=== PATIENT | female | born 1985 | race Two or more races ===

== ENCOUNTER 2016-07-28 17:13 | Emergency (ER) | payer SELFPAY ==
[2016-07-28 17:16] VITALS: BP 102/61
--- NOTE | 2016-07-28 17:43 | PHYS DOC ---
Past Medical History Past Medical History: No Pertinent History Past Surgical History: No Surgical History Alcohol Use: None Drug Use: None Adult General Chief Complaint Chief Complaint: BREAST PROBLEM HPI HPI Patient is a 30 year old female who presents with complaint of abscess to the left nipple. Patient states that she noticed it first 8 days ago. Patient states that since that time she is followed at [facility] and had been receiving treatment with Keflex and Rocephin. Despite treatment, the patient has had worsening infection to the left nipple. Patient was referred to the emergency department for evaluation and possible surgical consultation for I&D. Patient has not had any fevers. Patient states that the lesion is extremely painful to touch and rates the pain as 10 out of 10 when touched. Patient is currently 26 weeks . Patient has had no significant complications with her and states that she is not having any vaginal bleeding or abdominal pain currently. Review of Systems Review of Systems Constitutional: Denies fever or chills [] Eyes: Denies change in visual acuity, redness, or eye pain [] HENT: Denies nasal congestion or sore throat [] Respiratory: Denies cough or shortness of breath [] Cardiovascular: Denies chest pain or edema [] GI: Denies abdominal pain, nausea, vomiting, bloody stools or diarrhea [] : Left nipple abscess [] Musculoskeletal: Denies back pain or joint pain [] Integument: Denies rash or skin lesions [] Neurologic: Denies headache, focal weakness or sensory changes [] Allergies Allergies Allergies Coded Allergies Type Severity Reaction Last Updated Verified No Known Drug Allergies 07/28/16 No Physical Exam Physical Exam Constitutional: Well developed, well nourished, no acute distress, non-toxic appearance. [] HENT: Normocephalic, atraumatic, bilateral external ears normal, oropharynx moist, no oral exudates, nose normal. [] Eyes: PERRLA, EOMI, conjunctiva normal, no discharge. [] Neck: Normal range of motion, no tenderness, supple, no stridor. [] Cardiovascular:Heart rate regular rhythm, no murmur [] Lungs & Thorax: Bilateral breath sounds clear to auscultation Breast: 2.5 x 2 cm fluctuant lesion on superior portion of left nipple, no obvious areolar involvement involvement. The lesion is tender to palpation and is warm to touch, no palpable induration present and left breast. Abdomen: Bowel sounds normal, soft, no tenderness, no masses, no pulsatile masses. [] Skin: Warm, dry, no erythema, no rash. [] Back: No tenderness, no CVA tenderness. [] Extremities: No tenderness, no cyanosis, no clubbing, ROM intact, no edema. [] Neurologic: Alert and oriented X 3, normal motor function, normal sensory function, no focal deficits noted. [] Current Patient Data Vital Signs Vital Signs Date Time Temp Pulse Resp B/P Pulse Ox O2 Delivery O2 Flow Rate FiO2 07/28/16 17:16 97.9 86 20 98 Room Air 97.9 EKG EKG Not performed [] Radiology/Procedures Radiology/Procedures Indication: Left nipple abscess Procedure: The patient was positioned appropriately. Local anesthesia was withheld. An incision was then made over the apex of the lesion and 4 mL of purulent material was expressed out of the incision. Clean gauze was placed over the wound site. The patients tetanus status updated as needed. The patient tolerated the procedure well. Complications: none.[] Course & Med Decision Making Course & Med Decision Making Pertinent Labs and Imaging studies reviewed. (See chart for details) I consult to Dr. Shine of general surgery. He stated that based off of the description it would be appropriate for incision and drainage in the emergency department and recommended not to place any packing but stated that it would be appropriate to change the patient's antibiotic to clindamycin. He agreed to follow-up with the patient in clinic for reevaluation. Patient received incision and drainage as outlined in the procedure note with expression of approximately 4 mL of purulent material. Patient also received tetanus booster as she did not remember when she last received tetanus booster. Advise follow- up in 3-[address] Shine's office and return to emergency department for any worsening symptoms. Patient voiced understanding and in agreement with treatment plan. Dragon Disclaimer Dragon Disclaimer This electronic medical record was generated, in whole or in part, using a voice recognition dictation system. Departure Departure Impression: Primary Impression: Abscess of left nipple Additional Impression: Second trimester Disposition: HOME, SELF-CARE Condition: IMPROVED Referrals: BLANCA SHINE MD Patient Instructions: Abscess, Care After, Incision and Drainage, Care After Additional Instructions: Follow-up with Dr. Dover in 3-5 days. Discontinue your Keflex prescription and begin taking clindamycin as prescribed from the emergency department today. Return to the emergency department for any worsening symptoms. Scripts Clindamycin Hcl 300 Mg Capsule1 Cap PO TID #21 CAP Prov:LANA KHAN MD 07/28/16 Problem Qualifiers LANA KHAN MD Jul 28, 2016 17:43
[2016-07-28] MEDS ORDERED: DIPHTH,PERTUSS(ACELL),TET TOX 0.5 ML DISP.SYRIN. VAX IM ONE (18:15)
[2016-07-28] MEDS ORDERED: CLIN300C86 PO (18:18)
== END 2016-07-28 18:35 | disposition home or self-care (01) ==
LOC: ER 17:13
DX: O00-O9A Pregnancy, childbirth and the puerperium (principal); Z3A.26 26 weeks gestation of pregnancy
CPT/HCPCS: 10060; 90471; 90715; 99283-25

== ENCOUNTER → 2017-04-10 | Outpatient (CLI) | payer OTHER ==
[~2017-04-10] MED LIST: CLIN300C8 PO
--- NOTE | 2017-04-10 14:57 | KCIC ---
Single view chest 04/10/2017 CLINICAL INDICATION: Positive TB test. COMPARISON: None. FINDINGS: There is a poor depth of inspiration. Cardiac and mediastinal silhouettes are unremarkable. No pleural effusion, pneumothorax or focal consolidation. IMPRESSION: Somewhat limited exam due to poor depth of inspiration with no acute cardiopulmonary abnormality. Electronically signed by: Chavo Pickard MD (04/10/2017 2:54 PM) [id number]
== END | disposition home or self-care (01) ==
LOC: KCIC 14:08
PROVIDERS: ATTEND Family Medicine
DX: R76.11 Nonspecific reaction to tuberculin skin test without active tuberculosis (principal)
CPT/HCPCS: 71010

== ENCOUNTER 2021-07-27 09:39 | Inpatient (IN) | payer SELFPAY ==
[~2021-07-27] VITALS: Ht 152.4 cm; Wt 81.0 kg
[~2021-07-27 09:39] MED LIST changes: +CLIN-94 PO; -CLIN300C8 PO
[2021-07-27] MEDS ORDERED: IV RINGERS,LACTATED 1000ML 1,000 ML IV PRN (10:15)
[2021-07-27] MEDS ORDERED: 0.9 % SODIUM CHLORIDE 10 ML DISP.SYRIN. IV PRN ×2 (13:30→16:30)
[2021-07-27] MEDS ORDERED: IV RINGERS,LACTATED 1000ML 1,000 ML IV SCH (13:30)
[2021-07-27] MEDS ORDERED: TERBUTALINE 1 MG/ML VIAL. SQ PRN (13:30)
[2021-07-27] MEDS ORDERED: BUTORPHANOL 2 MG/ML VIAL. IVP PRN ×2 (13:30)
[2021-07-27] MEDS ORDERED: ACETAMINOPHEN 325 MG TABLET. PO PRN ×2 (13:30→16:30)
[2021-07-27] MEDS ORDERED: OXYTOCIN 30 UNIT/500 ML PREMIX 500 ML IV PRN ×3 (13:30→16:30)
[2021-07-27] MEDS ORDERED: LIDOCAINE 1% PF 30 ML VIAL. INJ PRN (13:30)
[2021-07-27 13:45] VITALS: BP 142/73
[2021-07-27 13:49] LABS: BASO % 1 % (0-3); EOS # 0.1 x10^3/uL (0.0-0.7); EOS % 1 % (0-3); HEMOGLOBIN 13.4 g/dL (12.0-15.5); LYMPH # 2.6 x10^3/uL (1.0-4.8); LYMPH % 29 % (24-48); MEAN CORPUSCULAR HEMOGLOBIN 31 pg (25-35); MEAN CORPUSCULAR HGB CONC 35 g/dL (31-37); MEAN CORPUSCULAR VOLUME 87 fL (79-100); MONO # 0.6 x10^3/uL (0.0-1.1); MONO % 7 % (0-9); NEUT # 5.6 x10^3/uL (1.8-7.7); NEUT % 63 % (31-73); PLATELET COUNT 267 x10^3/uL (140-400); RED BLOOD COUNT 4.35 x10^6/uL (3.50-5.40); WHITE BLOOD COUNT 8.9 x10^3/uL (4.0-11.0)
--- NOTE | 2021-07-27 14:27 | PDOC1 ---
DEMURRAGE CLERK H&P Date of Admission: Date of Admission: Jul 27, 2021 at 09:39 History of Present Illness: EDC: 07/31/21 LMP: 11/02/20 35y @ 39.3 by 2nd trimester u/s per pt presents with ctxs. The tp was found to be 3 cm on presentation. After an hours time she had progressed to 3-4 cm dilated. She was given an additional hour to see if she was in active labor. During that time the experienced SROM. The pt reports that she was dxed with GDM during the . PMH: Denies PSH: Denies Meds: PNV All: NKDA OBHx: 4 x TSVD SH: no tob, no EtOH FH: DM Allergies: Coded Allergies: No Known Drug Allergies (Unverified , 07/28/16) Physical Exam: PE: GENERAL: No apparent distress. Alert and oriented. HEENT: Head normocephalic, atraumatic. NECK: Supple LUNGS: Clear to auscultation. HEART: RRR, S1, S2 present, pulses intact ABDOMEN: Soft, positive bowel sounds. EXTREMITIES: No cyanosis or edema. NEUROLOGIC: Normal speech, normal tone PSYCHIATRIC: Normal affect, normal mood. SKIN: No ulceration. FHT: 120s +acels/no decels/mLTV [place]: 3 min SVE: 6/C/-1 Labs: Laboratory Tests Test 07/27/21 10:05 07/27/21 13:30 07/27/21 13:36 Urine Collection Type Unknown Urine Color (Auto) Yellow Urine Turbidity Clear Urine pH (Auto) 6.5 (<5.0-8.0) Urine Specific [place] 1.025 (1.000-1.030) Urine Protein (Auto) 30 mg/dL (Negative) Urine Glucose (Auto)(UA) 500 mg/dL (Negative) Urine Ketones (Auto) Trace mg/dL (Negative) Urine Blood (Auto) Negative (Negative) Urine Nitrite (Auto) Positive (Negative) Urine Bilirubin (Auto) Negative (Negative) Urine Urobilinogen (Auto) Normal mg/dL (Normal) Urine Leukocyte Esterase (Auto) Negative (Negative) White Blood Count 8.9 x10^3/uL (4.0-11.0) Red Blood Count 4.35 x10^6/uL (3.50-5.40) Hemoglobin 13.4 g/dL (12.0-15.5) Hematocrit 38.0 % (36.0-47.0) Mean Corpuscular Volume 87 fL (79-100) Mean Corpuscular Hemoglobin 31 pg (25-35) Mean Corpuscular Hemoglobin Concent 35 g/dL (31-37) Red Cell Distribution Width 14.0 % (11.5-14.5) Platelet Count 267 x10^3/uL (140-400) Neutrophils (%) (Auto) 63 % (31-73) Lymphocytes (%) (Auto) 29 % (24-48) Monocytes (%) (Auto) 7 % (0-9) Eosinophils (%) (Auto) 1 % (0-3) Basophils (%) (Auto) 1 % (0-3) Neutrophils # (Auto) 5.6 x10^3/uL (1.8-7.7) Lymphocytes # (Auto) 2.6 x10^3/uL (1.0-4.8) Monocytes # (Auto) 0.6 x10^3/uL (0.0-1.1) Eosinophils # (Auto) 0.1 x10^3/uL (0.0-0.7) Basophils # (Auto) 0.0 x10^3/uL (0.0-0.2) Glucose (Fingerstick) 83 mg/dL (70-99) Laboratory Tests 07/27/21 13:30 Laboratory Tests 07/27/21 13:30 Assessment & Plan: A/P 35y @ 39.3 by 2nd trimester u/s 1.) [facility] records requested 2.) SROM will augment 3.) AMA 4.) GDM unknown control, likely A1 5.) Fetus cat I FHT 6.) GBS unk records requested INDU FINNEGAN MD Jul 27, 2021 14:27
[2021-07-27] MEDS ORDERED: OXYTOCIN PREMIX 30 UNIT/500 ML NS BAG. IV ONE (14:30)
[2021-07-27] MEDS ORDERED: LIDOCAINE 2% PF 5 ML VIAL. ONE (14:38)
[2021-07-27] MEDS ORDERED: oxyCODONE/APAP 5/325 1 TAB TABLET PO PRN (16:30)
[2021-07-27] MEDS ORDERED: BENZOCAINE 20% TOPICAL AEROSOL SPRAY 57GM CAN. TP PRN (16:30)
[2021-07-27] MEDS ORDERED: MAG HYDROX/ALUMINUM HYD/SIMETH 30 ML ORAL.SUSP PO PRN (16:30)
[2021-07-27] MEDS ORDERED: SIMETHICONE 80 MG TAB.CHEW PO PRN (16:30)
[2021-07-27] MEDS ORDERED: HYDROCORTISONE 1% TOPICAL OINTMENT 30GM TUBE. TP PRN (16:30)
[2021-07-27] MEDS ORDERED: TDaP (BOOSTRIX) per PROTOCOL. MC PRN (16:30)
[2021-07-27] MEDS ORDERED: PHENYLEPH/MINERAL OIL/PETROLAT RECTAL OINTMENT TUBE. RC PRN (16:30)
[2021-07-27] MEDS ORDERED: diphenhydrAMINE HCL 25 MG CAPSULE PO PRN (16:30)
[2021-07-27] MEDS ORDERED: ZOLPIDEM 5 MG TABLET. PO PRN (16:30)
[2021-07-27] MEDS ORDERED: MMR per PROTOCOL. MC PRN (16:30)
[2021-07-27] MEDS ORDERED: MAGNESIUM HYDROXIDE 2,400 MG/30 ML ORAL.SUSP. PO PRN (16:30)
--- NOTE | 2021-07-27 16:33 | PDOC4 ---
VAGINAL DELIVERY DATE DATE: 07/27/21 TIME: 16:33 TIME Patient delivered a viable male over intact perineum at 1520. Wt 9 lb 1 oz. Apgars 8/9. Placenta delivered spontaneously, intact with 3VC. No lacerations noted. Good hemostasis noted. 20 U of Pit given with IVF. EBL 200 cc. WEIGHT Weight [ ] INDU FINNEGAN MD Jul 27, 2021 16:33
[2021-07-27 20:00] VITALS: BP 120/57
[2021-07-27] MEDS: IBUPROFEN 400 MG TABLET. PO PRN (20:00)
[2021-07-28] VITALS: BP 122/59
[2021-07-28 04:00] VITALS: BP 111/61
[2021-07-28] MEDS ORDERED: FERROUS SULFATE 325 MG TABLET. PO SCH (08:00)
[2021-07-28 08:30] VITALS: BP_SYST 117; BP_DIAS 68; BP_DIAS 8
[2021-07-28 08:30] LABS: HEMATOCRIT 32.7 % (36.0-47.0); RED BLOOD COUNT 3.69 x10^6/uL (3.50-5.40); RED CELL DISTRIBUTION WIDTH 14.5 % (11.5-14.5); WHITE BLOOD COUNT 10.7 x10^3/uL (4.0-11.0)
[2021-07-28] MEDS: IBUPROFEN 400 MG TABLET. PO PRN ×2 (08:37→17:51)
[2021-07-28] MEDS: DOCUSATE SODIUM 100 MG CAPSULE. PO PRN ×2 (08:37→17:50)
[2021-07-28] MEDS: PRENATAL MULTIVITAMIN TABLET. PO SCH (08:37)
[2021-07-28 12:00] VITALS: BP 115/66
[2021-07-28 17:35] VITALS: BP 135/73
--- NOTE | 2021-07-28 19:03 | PDOC ---
AEROSPACE ENGINEER PROGRESS NOTE Date of Service: DATE: 07/28/21 TIME: 19:01 Subjective: Doing well. Pain well managed with PO meds. Tolerates activity, diet, and voiding without difficulty. No c/o Objective: Objective: FF@U/1, scant lochia. Vital Signs: Vital Signs Date Time Temp Pulse Resp B/P (MAP) Pulse Ox O2 Delivery O2 Flow Rate FiO2 07/27/21 13:45 97.7 66 20 142/73 (96) 97.7 07/27/21 20:00 Room Air 07/28/21 08:30 16 Vital Signs Date Time Temp Pulse Resp B/P (MAP) Pulse Ox O2 Delivery O2 Flow Rate FiO2 07/28/21 17:35 97.5 20 135/73 (93) 98 Room Air 97.5 07/28/21 12:00 72 Labs: Laboratory Tests Test 07/28/21 07:45 White Blood Count 10.7 x10^3/uL (4.0-11.0) Red Blood Count 3.69 x10^6/uL (3.50-5.40) Hemoglobin 11.0 g/dL (12.0-15.5) L Hematocrit 32.7 % (36.0-47.0) L Mean Corpuscular Volume 88 fL (79-100) Mean Corpuscular Hemoglobin 30 pg (25-35) Mean Corpuscular Hemoglobin Concent 34 g/dL (31-37) Red Cell Distribution Width 14.5 % (11.5-14.5) Platelet Count 241 x10^3/uL (140-400) Laboratory Tests 07/28/21 07:45 Laboratory Tests 07/28/21 07:45 Physical Exam: GENERAL: No apparent distress. Alert and oriented. HEENT: Head normocephalic, atraumatic. NECK: Supple LUNGS: Clear to auscultation. HEART: RRR, S1, S2 present, pulses intact ABDOMEN: Soft, positive bowel sounds. EXTREMITIES: No cyanosis or edema. NEUROLOGIC: Normal speech, normal tone PSYCHIATRIC: Normal affect, normal mood. SKIN: No ulceration. Assessment & Plan: PPD#1 routine PP course. Anticipate d/c home tomorrow. SHANEL FLOR CNM Jul 28, 2021 19:03
[2021-07-28 21:35] VITALS: BP 118/68
[2021-07-29] MEDS: IBUPROFEN 400 MG TABLET. PO PRN (03:05)
[2021-07-29 06:21] VITALS: BP 131/86
[2021-07-29] MEDS: DOCUSATE SODIUM 100 MG CAPSULE. PO PRN (08:42)
[2021-07-29] MEDS: PRENATAL MULTIVITAMIN TABLET. PO SCH (08:42)
[2021-07-29] MEDS ORDERED: IBUP-1060 PO (09:19)
[2021-07-29] MEDS ORDERED: DOCU-109 PO (09:19)
--- NOTE | 2021-07-29 11:02 | PDOC ---
MACHINE QUILT STUFFER PROGRESS NOTE Date of Service: DATE: 07/29/21 TIME: 11:01 Subjective: Pt with good pain control. Vivek PO. Voiding. Minimal lochia. The pts records were found with [facility]. The pt states that she thought she was going go [facility] b/c the [facility]. In the records it states that the pt was interested in a BTL. The pt was asked about this. She states that she is not sure if she wants this b/c she would have to stay longer. The pt was asked why she did not mention this earlier in her hospitalization. Objective: Vital Signs: Vital Signs Date Time Temp Pulse Resp B/P (MAP) Pulse Ox O2 Delivery O2 Flow Rate FiO2 07/28/21 08:30 97.8 67 16 117/68 (84) 16 Room Air 97.8 Vital Signs Date Time Temp Pulse Resp B/P (MAP) Pulse Ox O2 Delivery O2 Flow Rate FiO2 07/29/21 08:35 Room Air 07/29/21 06:21 97.6 73 16 131/86 (101) 99 97.6 Physical Exam: GENERAL: No apparent distress. Alert and oriented. HEENT: Head normocephalic, atraumatic. NECK: Supple LUNGS: Clear to auscultation. HEART: RRR, S1, S2 present, pulses intact ABDOMEN: Soft, positive bowel sounds. EXTREMITIES: No cyanosis or edema. NEUROLOGIC: Normal speech, normal tone PSYCHIATRIC: Normal affect, normal mood. SKIN: No ulceration. FFNT below umb No C/C/E Assessment & Plan: A/P 35y PPD #2 s/p 1.) PP doing well 2.) GDM only one visit after dx, unclear if she has been recording her FSBS 3.) Hgb 13.4 -> 11.0 4.) Flu vaccine given 06/01/21 5.) TDAP given 06/01/21 6.) DPS did not mention until asked today, will discuss at PP visit 7.) D/c home INDU FINNEGAN MD Jul 29, 2021 11:02
[2021-07-29 12:30] VITALS: BP 132/82
--- NOTE | 2021-07-31 13:44 | DS ---
DATE OF DISCHARGE: 07/29/2021 ADMISSION DIAGNOSES: 1. Intrauterine at 39 weeks and 3 days by second trimester ultrasound. 2. Spontaneous rupture of membranes. 3. Advanced maternal age. 4. A1 diabetes. 5. GBS unknown. 6. Advanced maternal age. DISCHARGE DIAGNOSES: 1. Intrauterine at 39 weeks and 3 days by second trimester ultrasound. 2. Spontaneous rupture of membranes. 3. Advanced maternal age. 4. A1 diabetes. 5. GBS unknown. 6. Advanced maternal age. PROCEDURE: Spontaneous vaginal delivery. BRIEF HOSPITAL COURSE: The patient is a 35-year-old 5, para 4-0-0-4, who presents to Labor and Delivery at 39 weeks and 3 days by second trimester ultrasound with contractions. The patient was 3 cm on presentation. After an hour's time, the patient progressed 3-4 cm. The patient was given additional hour to see if she became in active labor during that time. The patient experienced spontaneous rupture of membranes. The patient initially thought that she had been going to [email or web address], but ultimately her records were found with [facility]. The patient had not been there within a month, so GBS was never collected. The patient ultimately delivered by vaginal delivery. See delivery note for full detail. By day #2, the patient was meeting all discharge criteria and subsequently discharged home. Of note, her records revealed that she had considered having a tubal ligation. The patient was asked about this on the second day, but was unable to explain why she did not inform us of this desire. On the first day of her arrival, the patient also was noted to have diabetes, but only had initial visit when she was diagnosed with diabetes and given her supplies so her control was unknown. The patient also had a hemoglobin of 13.4 when she arrived and after delivery, was found to be 11.0. DISCHARGE INSTRUCTIONS: The patient was told not to lift anything greater than 20 pounds, have pelvic rest for [address], [address] to [address] while on narcotics. CALL IF: The patient was to call if she had fevers, chills, nausea, vomiting, abdominal pain or any additional questions or concerns. FOLLOWUP APPOINTMENT: The patient was to follow up on 09/09/2021 at 1 p.m. for a appointment. DISCHARGE MEDICATIONS: The patient was given a prescription for Motrin 800 mg, 30 pills and Colace 100 mg, [address]: Jovany TID: [id number]
--- NOTE | 2021-08-02 18:06 | PATHOLOGY ---
[facility] Accession Number: [id number] . 01 Material submitted: . placenta - PLACENTA AND CORD . 01 Clinical history: . HX GDM AMA 35 YO . 02 Diagnosis: Placenta, vaginal delivery: - Mature newby placenta weighing 838 grams (at far above the 99th percentile for a 39-week gestation). - Circummarginate and circumvallate placentation. - Three vessel umbilical cord with eccentric insertion into the chorionic plate. - Areas of recent and remote retromembranous hematoma. - Focal chronic deciduitis. - Chorangiosis. - Focal villous agglutination. (MLK:tami; 08/02/2021) R 08/02/2021 1722 Local . 02 Electronically signed: . Evita Kolb MD, Pathologist NPI- [id number] . 01 Gross description: . Fixative: Formalin Labeled: Per container: Placenta. Per requisition: Placenta and cord Specimen received: Newby placenta with attached membranes and umbilical cord Dimensions: 20.0 x 14.1 x 5.5 cm membranes appearance: Complete, recio-pink, transparent and glistening membrane insertion: 30% circumvallate and 70% circummarginate Umbilical cord: 28.9 cm in length, 1.2-1.7 cm in diameter Umbilical cord insertion: Eccentric, 3.3 cm from the closest placental disc edge Number of umbilical vessels: 3 Umbilical cord appearance: Recio-white, congested, displaying 2 coils per 10 cm segment Trimmed placental weight: 838 g surface: Blue-keane, displaying congested vasculature in an arborizing pattern, and a minimal amount of moderate fibrin deposition Maternal surface: Complete, red-brown, congested, with a minimal amount of surface calcifications Parenchyma: Red, congested, spongy, devoid of discrete masses or lesions . C Engineer sections are submitted as follows: A1 proximal and distal umbilical cord A2 membranes, rolled A3-A4 technical support representative peripheral placenta, 1 full thickness section bisected A4-A5 technical support representative central placenta, 1 full thickness section, bisected (JGG; 07/28/2021) JGG/JGG 07/28/2021 2203 Local . 02 Pathologist provided ICD-10: Z3A.39 . 02 CPT . 820853 Specimen Comment: A courtesy copy of this report has been sent to [phone] Specimen Comment: Report sent to Performed at: 01 [facility] [address], [place] [id number] MD Brady Ovalle MD Phone: [phone] Performed at: 02 [facility] [address] [place], [place] [id number] MD Pratik Reese MD Phone: [phone]
== END 2021-07-29 12:10 | disposition home or self-care (01) | DRG 807 ==
LOC: 3 SO LND 09:39 → OBSVTOIN 15:20
PROVIDERS: ADMIT Obstetrics & Gynecology; ATTEND Obstetrics & Gynecology
PROC: 10E0XZZ Delivery of Products of Conception, External Approach (ICD-10-PCS; principal; 2021-07-27)
PROC: 3E033VJ Introduction of Other Hormone into Peripheral Vein, Percutaneous Approach (ICD-10-PCS; 2021-07-27)
DX: O24.420 Gestational diabetes mellitus in childbirth, diet controlled (principal); Z37.0 Single live birth; Z3A.39 39 weeks gestation of pregnancy; Z83.3 Family history of diabetes mellitus; Z20.822 Contact with and (suspected) exposure to COVID-19
CPT/HCPCS: 36415; 81003; 82962; 85025; 85027; 86592; 86850; 86900; 86901; 87426; 88307; G0378; G0379; J2590; U0003